=== PATIENT | female | born 1970 | race Caucasian/White ===

== ENCOUNTER 2022-04-15 10:30 | Outpatient (CLI) | payer BC, SELFPAY ==
--- NOTE | ~2022-04-15 | MR_ITS ---
EXAMINATION: MR shoulder LT wo con DATE: 04/15/2022 11:47 INDICATION: Left shoulder pain TECHNIQUE: Magnetic resonance imaging (MRI) of the left shoulder was performed without intravenous co ntrast. Sequences included axial PD-weighted FS FSE, coronal oblique PD-weighted FS FSE, coronal obli que T2-weighted FS FSE, sagittal PD-weighted FS FSE, and sagittal T1-weighted SE. COMPARISON: None. FINDINGS: Coracoacromial arch: The acromion undersurface is curved in morphology (type II). The coracoacromial ligament is normal. M ild acromioclavicular osteoarthritis. Rotator cuff: Focal mild to moderate tendinopathy at the distal insertion of the supraspinatus tendon without discr ete tear. The subscapularis, infraspinatus and teres minor tendons are normal. Normal rotator cuff mu scle bulk and signal. Biceps tendon, glenoid labrum and glenohumeral cartilage: Long head of the biceps tendon is normal. Glenoid labrum is normal. Mild humeral osteoarthritis with mild partial-thickness cartilage loss with smooth chondral surface along the central aspect of the gl enoid. Fluid: Physiologic amount of fluid in the glenohumeral joint and biceps tendon sheath. No loose osteochondr al bodies. No increased fluid signal in the subacromial/subdeltoid bursa consistent with minimal burs itis. Bones: Normal marrow signal with no edema, fracture or abnormal marrow replacing process. Mild cystic change underlying the lesser tuberosity. IMPRESSION: 1. Mild to moderate tendinopathy without discrete tear at the distal supraspinatus tendon. 2. Mild glenohumeral and acromioclavicular osteoarthritis. Reviewed, dictated and finalized at location A. IMPRESSION: 1. Mild to moderate tendinopathy without discrete tear at the distal supraspina tus tendon. 2. Mild glenohumeral and acromioclavicular osteoarthritis.
== END 2022-04-15 10:31 | disposition home or self-care (01) ==
PROVIDERS: PCP Family Medicine; Visit Provider Orthopaedic Surgery
DX: M19.012 Primary osteoarthritis, left shoulder (principal)
CPT/HCPCS: 73221

== ENCOUNTER 2022-06-11 01:58 | Day surgery (SDC) | payer BC, SELFPAY ==
[2022-05-29 14:22] VITALS: BMI 27.6
--- NOTE | 2022-05-29 14:47 | PC.NURSE ---
Report to the Outpatient Waiting Room, entrance under the green pavilion located off [facility], at time 1130 on date _06/11/22. Planned Procedure Time: 1330 Time changes happen often and if your time is changed the preop area will call you the afternoon before. - You and your visitor will be asked to self-screen and do not enter if you have any COVID symptoms. - Only one visitor is requested with a max of two and NO children visitors are allowed at this time. - The patient visitor may be requested to leave or wait in car when not with patient due to distancing restrictions. - A mask is optional within the hospital. Patients may have clear liquids (water, carbonated beverages, clear teas, apple juice) until 3 hours prior to surgery with a maximum of 20 ounces. - No food from midnight until time of surgery - Infants may have breast milk until 4 hours before surgery, infant formula 6 hours prior to surgery. - Children will be allowed to drink immediately following surgery. If applicable, please bring a bottle or sippy cup to assist with drinking. Juice, water, soda, and popsicles are readily available. For infants on formula, please bring formula the day of surgery. Pacifiers are allowed. Take the following medications with a SIP of water the morning of surgery: fluoxetine Medications to discontinue per physician multivitamin, vitamin b12, supplement___ Date to take last dose_06/08/22_ Please no make-up, nail arabic, hairspray, perfume, deodorant, or body powder the day of surgery. No jewelry (including any body piercings) or valuables the day of surgery, leave them at home. Please take a shower or bath the night before, or the morning of, surgery with an antibacterial soap. Wear comfortable, loose fitting clothing. Children are encouraged to wear pajamas. - Jewelry must be removed prior to entering the operating room. Rings and piercings that are not removed may be cut off. - The hospital will not accept responsibility for valuables. - Please leave all valuables, including medications, at home the day of surgery. If you are going home after surgery, a licensed rolloff truck driver must drive you home. - NO public transportation without another adult if you receive anesthesia. - We recommend that an adult stay with you for 24 hours following discharge. - We also recommend that you do not drive, make important decision, drink alcoholic beverages, or take any drugs that were not prescribed by your health care provider for at least 24 hours after your discharge time. For Pediatric surgeries, we recommend two adults accompany the child home. Follow any additional instructions given to you from your surgeon. If you or anyone in your household have experienced Covid symptoms in the past week, please notify your surgeon or the nurse liaison at the phone number below for possible testing. Telephone instructions given to Rohit Nava and asked if any additional questions and then verbalized understanding. Patient advised to call surgeon office or pre surgery nurse liaison [phone] if any additional questions.
[2022-06-11] VITALS (10 sets, daily range): BP systolic 91–136; BP diastolic 50–81; PULSE 63–94; RESP 12–20; TEMP 36.1–36.8; O2SAT 93–100
[2022-06-11] MEDS: KETOROLAC 15 MG/ML VIAL (*BKC) IV PUSH (12:35)
[2022-06-11] MEDS: ACETAMINOPHEN 500 MG TABLET 1000 MG PO (12:35)
--- NOTE | 2022-06-11 12:47 | WPDANESEPPF ---
Anes - Initial Pre Proc Eval Procedure: Operation Date: 06/11/22 13:30 Proposed Procedures p Left Shoulder Arthroscopic Subacromial Decompression, Proceed as Indicated - Pranav Mederos MD Date/Time: 06/11/22 12:47 Surgeon: Pranav Mederos MD Pre Op Diagnosis: left shoulder tendonitis Patient Data Age: 51 Gender: F Height: 1.63 m Weight: 77.6 kg Last Vital Signs Temp 36.8 C 06/11/22 12:41 Pulse 90 06/11/22 12:41 Resp 14 06/11/22 12:41 BP 123/81 06/11/22 12:41 Pulse Ox 98 06/11/22 12:41 O2 Del Method Room Air 06/11/22 12:41 Allergies Allergy/AdvReac Type Severity Reaction Status Date / Time amoxicillin AdvReac Unknown upset Verified 06/03/22 08:08 stomach Home Medications Medication Instructions Recorded Confirmed Type fluoxetine 10 mg capsule 10 mg PO DAILY 03/12/22 06/03/22 History clonazepam 0.5 mg tablet 0.5 mg PO DAILY 05/29/22 06/03/22 History multivit with minerals-iron 18 1 tablet PO DAILY 05/29/22 06/03/22 History mg-folic ac 400 mcg-vit K 25 mcg tablet (Adults Multivitamin) psyllium seed (sugar) oral powder 1 tbsp PO DAILY 05/29/22 06/03/22 History vitamin B complex (B 1 tablet PO DAILY 05/29/22 06/03/22 History Complex-Vitamin B12 tablet) Patient hx anesthesia problems: none Family hx anesthesia problems: none Results Review: All pre-operative results and documents have been reviewed as part of the pre-operative evaluation. [facility] Past Medical History Medical History Broken ankle (~2011) Broken ankle/leg History of bruising easily Surgical History Surgical History (Updated 06/11/22 @ 12:47 by Addy Mcdonald MD) H/O laparoscopy History of colon resection (~2009) Hx of cholecystectomy (~2014) Family History Family History Other Diabetes mellitus Lung cancer Social History Social History Smoking status: Never smoker Alcohol intake: current Alcohol use details: Socially Substance use: never Substance use type: does not use Lack of Transportation: No Lack of Food: Never True Current Housing: I Have Housing Concerned About Future Housing: No Difficulty Paying Gas/Electric Bills: No Difficulty Paying for Meds: No Currently Unemployed: No Education: Trade/Vocational Certificate Difficulty w/ Childcare or Family Care: No Living arrangements: with family Spiritual care concerns: No Anes - Eval Final PreProcedure Day of Procedure 06/11/22 12:47 Patient weight: overweight Heart: regular rate and rhythm Lungs: clear to auscultation Airway: Mallampati scale class II Neurological: alert and oriented Last oral intake: >/= 8 hours ASA classification: II Emergent: no Anesthetic plan: proceed Anesthesia type and monitoring: general ETT and standard monitoring Results Review: All pre-operative results and documents have been reviewed as part of the pre-operative evaluation. Informed Consent: The patient's anesthetic plan and its attendant risks and benefits were discussed with the patient/family/POA. Questions were solicited and answers provided to the satisfaction of the patient/family/POA.
[2022-06-11] MEDS: LACTATED RINGERS 1,000 ML 30 ML IV CONT ×2 (12:49→15:07)
--- NOTE | 2022-06-11 13:25 | WPDHPUPDATE1 ---
History and Physical Update Update Date/Time: 06/11/22 13:25 History and Physical has been reviewed, including an updated exam of the patient. There are NO changes in the patient's condition. Risks, benefits, and alternatives have been discussed and questions answered. Patient agrees to proceed with procedure.
[2022-06-11] MEDS: ceFAZolin 2 GM/D5W 50 ML 2 GM/50 ML BAG IVPB (13:31)
[2022-06-11] MEDS: LIDO 1%/EPINEPHRINE/PF 1:200,000 30 ML VIAL INFILTRATE (14:34)
--- NOTE | 2022-06-11 15:24 | W.PM.PROC2 ---
Procedure Note - Detailed Date of Procedure 06/11/22 Pre-op Diagnosis Left shoulder subacromial impingement and rotator cuff tendonitis Post-op Diagnosis Same Procedure Performed Left shoulder 1. Arthroscopic limited debridement of rotator cuff low grade bursal side tendon tear 2. Arthroscopic subacromial decompression Surgeon Pranav Mederos MD Anesthesia General and Regional ( interscalene block) Findings Preoperatively the patient was quite stiff and resisted range of motion. There was concern for capsulitis. Examination under anesthesia and arthroscopic findings did not show evidence for adhesive capsulitis. Minimal bursal side fraying with subacromial impingement was evident. Moderate capsular hyperemia without contracture. Slight laxity. Description of Procedure Preoperative antibiotics were given. The patient was brought to the operating room. Careful positioning in the beach chair was accomplished. The head neck were carefully positioned. A small bump was placed under the left shoulder. The shoulder was examined. There was no unusual contracture noted. The shoulder was prepped and draped in the usual sterile fashion. Standard posterior and anterior arthroscopic portals were established. The shoulder was inspected. There were no significant abnormalities. The articular cartilage and labrum were normal. The biceps was normal. A very tiny area of fraying at the upper subscapularis was not clinically relevant. Attention was turned to the subacromial space. There was moderate proliferative bursitis. Evidence for fraying of the superior supraspinatus against the inferior side of the acromion was noted. Minimal debridement of the rotator cuff was required. The tendon appeared otherwise very robust and healthy. A complete bursectomy was performed. An accessory lateral portal was created. The acromion was clearly visualized. The coracoacromial ligament was released. Careful acromioplasty was performed utilizing views from both lateral and posterior. Loose bone fragments were carefully irrigated from the joint. The arthroscopic instruments were removed. The wounds were closed with interrupted 3-0 Monocryl suture followed by Steri-Strips. A sterile dressing was applied with a sling. The patient was extubated and brought to the recovery room in stable condition. There were no complications. Pathology None sent Complications No immediate complications Condition Stable Disposition PACU [facility] Billing Surgery - Charge Forward: Surgery Billing
[2022-06-11] MEDS: ONDANSETRON INJ 4 MG/2 ML VIAL IV PUSH (15:31)
[2022-06-11] MEDS: fentaNYL CITRATE INJ (*CRX) 100 MCG/2 ML VIAL 25 MCG IV PUSH ×2 (15:41→16:02)
[2022-06-11] MEDS: oxyCODONE HCL (*CRX) 5 MG TAB IR PO (17:05)
[2022-06-11] MEDS: PROPARACAINE HCL 0.5% 15 ML OPHTH SOLN 1 DROP EACH EYE (17:34)
[2022-06-11] MEDS: DICLOFENAC SODIUM 0.1% OPHTH SOLN 2.5 ML BOTTLE 1 DROP EACH EYE (17:45)
[2022-06-11] MEDS: ARTIFICIAL TEARS OPHTH SOLN 15 ML BOTTLE 1 DROP EACH EYE (17:46)
== END 2022-06-11 17:55 | disposition home or self-care (01) ==
PROVIDERS: PCP Family Medicine; Visit Provider Orthopaedic Surgery
PROC: (CPT 29805; principal; 2022-06-11 13:30)
DX: M75.42 Impingement syndrome of left shoulder (principal); M75.82 Other shoulder lesions, left shoulder; M75.52 Bursitis of left shoulder
CPT/HCPCS: 29822; 29826; A4565; A9270; J0690; J1100; J1170; J1885; J2250; J2370; J2405; J2704; J3010; J7120